=== PATIENT | female | born 1985 | race Caucasian/White ===

== ENCOUNTER 2016-09-20 21:41 | Emergency (ER) | payer BC ==
[~2016-09-20] VITALS: Ht 162.6 cm; Wt 54.4 kg
--- NOTE | 2016-09-20 21:46 | NUR ---
PT AMBULATORY TO ER BED 21 C/O LT EAR AND THROAT PAIN X TODAY. ALSO C/O RUNNY NOSE. DENIES FEVER. 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 VSS. NAD NOTED. AWAITING MD JACOBS.
--- NOTE | 2016-09-20 23:16 | NUR ---
DR JON AT BEDSIDE FOR EVAL.
[2016-09-20] MEDS ORDERED: SULFAMETH/TRIMETH 800/160 MG 1 UDTAB TABLET PO ONE (23:30)
[2016-09-20] MEDS ORDERED: CEPHALEXIN MONOHYDRATE 500 MG CAPSULE PO ONE (23:30)
--- NOTE | 2016-09-20 23:43 | NUR ---
REPORT TO CHARGE NURSE JUAN CARLOS FOR JULIEN.
[2016-09-21] MEDS ORDERED: CIPROFLOXACIN HCL 500 MG TABLET ONE (00:17)
[2016-09-21] MEDS: CIPROFLOXACIN HCL 500 MG TABLET PO ONE (00:28)
--- NOTE | 2016-09-21 00:35 | NUR ---
DPatient discharged to home in stable condition. Written and verbal after care instructions given. Patient verbalizes understanding of instruction. patient is ambulatory with steady gait, no further complaints.
[2016-09-21 00:36] VITALS: BP 116/72
== END 2016-09-21 00:37 | disposition home or self-care (01) ==
LOC: ER 21:41
DX: H61.002 Unspecified perichondritis of left external ear (principal); J06.9 Acute upper respiratory infection, unspecified
CPT/HCPCS: 82962-TC; 84703-TC; 87070-TC; A4606; Z7610

== ENCOUNTER 2019-01-16 01:28 | Emergency (ER) | payer BC ==
[~2019-01-16] VITALS: Ht 162.6 cm; Wt 59.4 kg
[2019-01-16 02:00] VITALS: BP 121/76
[2019-01-16] MEDS ORDERED: IV NS 0.9% 1,000 ML BAG IV ONE (02:00)
[2019-01-16] MEDS ORDERED: METOCLOPRAMIDE HCL 10 MG/2 ML VIAL IV ONE (02:00)
--- NOTE | 2019-01-16 02:00 | NUR ---
PT BIBFAMILY C/O "N/V ALL NIGHT. 5MO PREG." -SOB AOX4. -BLEEDING IN VOMIT. NAD NOTED. PT ON MONITOR IN BED 10 WITH AT BEDSIDE. WILL CONTINUE TO MONITOR.
[2019-01-16] MEDS ORDERED: METOCLOPRAMIDE HCL 10 MG/2 ML VIAL ONE (02:08)
[2019-01-16 03:16] LABS: APPEARANCE,URINE Clear (CLEAR); BILIRUBIN,URINE Negative (NEGATIVE); BLOOD, URINE Negative Ery/uL (NEGATIVE); COLOR,URINE Yellow (YELLOW); KETONES,URINE Negative (NEGATIVE); LEUKOCYTE ESTERASE ,URINE Negative (NEGATIVE); NITRITE, URINE Negative (NEGATIVE); PROTEIN,URINE Negative (NEGATIVE); UGLUCOSE Negative (NEGATIVE); UROBILINOGEN,URINE 0.2 EU/dL (0.2)
--- NOTE | 2019-01-16 03:18 | NUR ---
URINE COLLECTED AND SENT TO LAB
--- NOTE | 2019-01-16 03:56 | NUR ---
IV removed. Catheter intact and site benign. Pressure and 4x4 applied to site. No bleeding noted.Patient discharged to home in stable condition. Written and verbal after care instructions given. Patient verbalizes understanding of instruction. PT AMBUALTORY WITH STEADY GAIT.
== END 2019-01-16 03:57 | disposition home or self-care (01) ==
LOC: ER 01:31
DX: O21.8 Other vomiting complicating pregnancy (principal); O26.892 Other specified pregnancy related conditions, second trimester; R10.31 Right lower quadrant pain; R10.32 Left lower quadrant pain; Z3A.21 21 weeks gestation of pregnancy
CPT/HCPCS: 76805; 81001; 96361; 96374; 99284; J2765; J7030; 81000-TC